=== PATIENT | female | born 1935 | race Caucasian/White ===

== ENCOUNTER 2019-07-09 07:24 | Emergency (ER) | payer MEDICARE, OTHER ==
[2019-07-09] MEDS ORDERED: ONDANSETRON HCL INJ/PF 4 MG/2 ML SDV IV ONE (07:50)
[2019-07-09] MEDS ORDERED: MORPHINE SULFATE 10 MG/ML INJ IV ONE (07:50)
--- NOTE | 2019-07-09 08:20 | ER Document Report ---
ED Hip Pain/Injury - General Chief Complaint: Hip Pain Stated Complaint: LEFT HIP PAIN Time Seen by Provider: 07/09/19 07:48 Primary Care Provider: HAILEE FREEMAN MD [Primary Care Provider] - Follow up as needed Mode of Arrival: Stretcher Information source: Patient TRAVEL OUTSIDE OF THE [place] IN LAST 30 DAYS: No - HPI Patient complains to provider of: Hip, Other - r frontal scalp. No: Injury, Pain, Flank, Pelvis, Thigh Occurred: Yesterday Where: Home. No: Indoors, Neighbor's, Halfway, Outdoors, Public place, School, Sports, Work, Other Onset/Duration: Sudden. denies: Gradual, Constant, Intermittent, Persistent, Waxing and waning, Better, Worse, Gone Quality of pain: Achy. denies: No pain, Burning, Cramping, Dull, Fullness, Pressure, Sharp, Stabbing, Throbbing, Other Severity: Mild Context: Fell/lost balance Symptoms prior to fall: denies: None, Chest pain, Cough, Dizzy/light-headed, Fever/chills/sweats, GI bleed, Headache, Rapid heart rate, Seizure, Vomiting/diarrhea, Other Symptoms since fall: denies: None, Chest pain, Cough, Dizzy/light-headed, Fever/chills/sweats, GI bleed, Headache, Rapid heart rate, Seizure, Vomiting/diarrhea, Other Other injuries: LUE. denies: Abdomen, Back, Chest, Face, Head, Neck, LLE, RUE, RLE - Related Data Allergies/Adverse Reactions: No Known Allergies Allergy (Verified 07/09/19 07:38) Past Medical History - Social History Smoking Status: Never Smoker Family History: None - Past Medical History Cardiac Medical History: Denies: Hx Heart Attack, Hx Hypertension Pulmonary Medical History: Denies: Hx Asthma Neurological Medical History: Denies: Hx Cerebrovascular Accident, Hx Seizures GI Medical History: Reports: Hx Hiatal Hernia - no sx at this time. Denies: Hx Hepatitis, Hx Ulcer Infectious Medical History: Denies: Hx Hepatitis Past Surgical History: Reports: Hx Hysterectomy. Denies: Hx Mastectomy, Hx Open Heart Surgery, Hx Pacemaker Review of Systems - Review of Systems Constitutional: denies: No symptoms reported, See HPI, Chills, Diaphoresis, Fever, Malaise, Weakness, Other, Weight gain, Weight loss, Recent illness EENT: denies: No symptoms reported, See HPI, Eye pain, Eye discharge, Blurred vision, Tearing, Double vision, Ear pain, Ear discharge, Nose pain, Nose congestion, Nose discharge, Sinus pressure, Sinus discharge, Throat pain, Difficulty swallowing, Throat swelling, Mouth pain, Mouth swelling, Dental problem, Vertigo, Other Cardiovascular: denies: No symptoms reported, See HPI, Chest pain, Palpitations, Heart racing, Orthopnea, Dyspnea, Syncope, Dizziness, Lightheaded, Edema, Other, Paroxysmal Nocturnal Dysp Respiratory: denies: No symptoms reported, See HPI, Cough, Hurts to breathe, Hemoptysis, Short of breath, Sputum, Stridor, Wheezing, Other Gastrointestinal: denies: No symptoms reported, See HPI, Abdomen distended, Abdominal pain, Diarrhea, Nausea, Vomiting, Constipation, Blood streaked bowels, Poor appetite, Poor fluid intake, Blood in vomit, Black stools, Rectal bleeding, Last bowel movement, Fecal incontinence, Other Musculoskeletal: Joint pain. denies: No symptoms reported, See HPI, Back pain, Gout, Joint swelling, Muscle pain, Muscle stiffness, Neck pain, Deformity, Leg swelling, Ankle swelling, Other Neurological/Psychological: Other - headache. denies: No symptoms reported, See HPI, Confusion, Dementia, Depression, Anxiety, Hallucinations, Sensory change, Homicidal ideation, Weakness, Gait changes, Loss of power, Paralysis, Seizure, Lost consciousness, Headaches, Speech impairment, Numbness, Suicidal ideation, Tingling, Tremor -: Yes All other systems reviewed and negative Physical Exam - Vital signs Vitals: Temp Pulse Resp BP Pulse Ox 98.6 F 81 16 155/72 H 98 07/09/19 07:25 07/09/19 07:25 07/09/19 07:25 07/09/19 07:25 07/09/19 07:25 Notes: PHYSICAL EXAMINATION: GENERAL: Well-appearing, well-nourished and in no acute distress. HEAD: Left forehead to the temporal area small ecchymosis and swelling., normocephalic. EYES: Pupils equal round and reactive to light, extraocular movements intact, sclera anicteric, conjunctiva are normal. ENT: nares patent, oropharynx clear without exudates. Moist mucous membranes. NECK: Normal range of motion, supple without lymphadenopathy cervical thoracic lumbar sacral spinous tenderness LUNGS: Breath sounds clear to auscultation bilaterally and equal. No wheezes rales or rhonchi. HEART: Regular rate and rhythm without murmurs ABDOMEN: Soft, nontender, normoactive bowel sounds. No guarding, no rebound. No masses appreciated. EXTREMITIES: Left hip pain to palpation over the greater trochanter does appear somewhat shortened. Rest extremities with full range of motion., no pitting or edema. No cyanosis. NEUROLOGICAL: No focal neurological deficits. Moves all extremities spontaneously and on command. PSYCH: Normal mood, normal affect. SKIN: Warm, Dry, normal turgor, no rashes or lesions noted. Course - Vital Signs Vital signs: Temp Pulse Resp BP Pulse Ox 98.6 F 81 16 155/72 H 98 07/09/19 07:25 07/09/19 07:25 07/09/19 07:25 07/09/19 07:25 07/09/19 07:25 - Laboratory Result Diagrams: 07/09/19 08:25 07/09/19 08:25 Laboratory results interpreted by me: 07/09/19 07/09/19 08:25 08:25 RDW 17.5 H Lymph % (Auto) 11.2 L Seg Neutrophils % 79.3 H Glucose 126 H - Diagnostic Test Radiology reviewed: Image reviewed, Reports reviewed Radiology results interpreted by me: 07/09/19 please note patient hip x-ray was read by the radiologist Dr. Rubi over the phone give me consultation claimed there is no acute fracture dislocation had trouble walking he suggested CT. - Transfer of Care Notes: 07/09/19 11:03 Patient was able to ambulate after Tylenol did have some pain will give her some [place] to go home but she feels like it very similar to the past and that she can stand without any pain in her hip just when she gets going to walk that when the pain comes on. Discharge - Discharge Clinical Impression: Contusion, hip Qualifiers: Encounter type: initial encounter Laterality: left Qualified Code(s): S70.02XA - Contusion of left hip, initial encounter Hand contusion Qualifiers: Encounter type: initial encounter Laterality: left Qualified Code(s): S60.222A - Contusion of left hand, initial encounter Concussion Qualifiers: Encounter type: initial encounter Loss of consciousness presence/duration: with LOC of unspecified duration Qualified Code(s): S06.0X9A - Concussion with loss of consciousness of unspecified duration, initial encounter Condition: Stable Disposition: HOME, SELF-CARE Instructions: Contusion ([facility]), Concussion ([facility]) Additional Instructions: Ice and a towel for 20 minutes 3 times a day return if worse take pain medicine as discussed Prescriptions: Hydrocodone/Acetaminophen [[place] 5-325 mg Tablet] 1 tab PO Q6 PRN #10 tablet PRN Reason: For Pain Scale 2-3 Referrals: HAILEE FREEMAN MD [Primary Care Provider] - Follow up as needed
--- NOTE | 2019-07-09 08:35 | RADIOLOGY REPORT (SQ) ---
EXAM DESCRIPTION: CT HEAD WITHOUT COMPLETED DATE/TIME: 07/09/2019 8:21 am REASON FOR STUDY: head injury COMPARISON: None. TECHNIQUE: Axial images acquired through the brain without intravenous contrast. Images reviewed wi th bone, brain and subdural windows. Additional sagittal and coronal reconstructions were generated. Images stored on PACS. All CT scanners at this facility use dose modulation, iterative reconstruction, and/or weight based d osing when appropriate to reduce radiation dose to as low as reasonably achievable (ALARA). [facility]: Dose Right [facility]: CareDose [facility]: Dose Right [facility]: Teradose 4D [facility]: [employer] RADIATION DOSE: CT Rad equipment meets quality standard of care and radiation dose reduction techniq ues were employed. CTDIvol: 53.2 mGy. DLP: 1017 mGy-cm. mGy. LIMITATIONS: None. FINDINGS: There is diffuse, age-appropriate cerebral and cerebellar volume loss. The confluent area s of hypoattenuation within the supratentorial periventricular and subcortical white matter are nonsp ecific but are favored to represent the sequela of chronic microvascular ischemia. There is a calcified extra-axial mass along the right frontal convexity ; the lesion exerts no consid erable mass effect on the adjacent parenchyma and there is no associated vasogenic edema. There is n o acute intracranial hemorrhage, extra-axial fluid collection or midline shift. There is no effaceme nt of the cerebral sulci or basal subarachnoid cisterns. The goldman-white matter differentiation is pr eserved. There is focal subcutaneous soft tissue swelling over the left frontal bone (image 22 of series 2) ; there is no associated calvarial fracture. The globes are aphakic. The orbits are intact. The para nasal sinuses and mastoid air cells are clear. IMPRESSION: Focal subcutaneous soft tissue swelling over the left frontal bone without an associated calvarial fracture or acute intracranial abnormality. EVIDENCE OF ACUTE STROKE: NO. COMMENT: Quality ID # 436: Final reports with documentation of one or more dose reduction techniques (e.g., Automated exposure control, adjustment of the mA and/or kV according to patient size, use of iterative reconstruction technique) TECHNICAL DOCUMENTATION: JOB ID: [id number] [employer]- All Rights Reserved Reading location - IP/workstation name: [email or web address]
[2019-07-09 08:55] LABS: ABSOLUTE BASOPHILS # (AUTO) 0.1 10^3/uL (0.0-0.2); ABSOLUTE EOSINOPHILS # (AUTO) 0.1 10^3/uL (0.0-0.6); ABSOLUTE LYMPHOCYTES (AUTO) 1.1 10^3/uL (0.5-4.7); ABSOLUTE MONOCYTES (AUTO) 0.8 10^3/uL (0.1-1.4); ABSOLUTE NEUT (AUTO) 7.5 10^3/uL (1.7-8.2); BASOPHILS % (AUTO) 0.6 % (0-2); EOSINOPHILS % (AUTO) 0.7 % (0-6); HEMOGLOBIN 13.9 g/dL (12.0-15.5); LYMPHOCYTES % (AUTO) 11.2 % (13-45); MEAN CORPUSCULAR HEMOGLOBIN 28.4 pg (27.0-33.4); MEAN CORPUSCULAR VOLUME 86 fl (80-97); MONOCYTES % (AUTO) 8.2 % (3-13); PLATELET COUNT 265 10^3/uL (150-450); RED BLOOD COUNT 4.88 10^6/uL (3.72-5.28); RED CELL DISTRIBUTION WIDTH 17.5 % (11.5-14.0); SEGMENTED NEUTROPHILS % (AUTO) 79.3 % (42-78); TOTAL CELLS COUNTED % (AUTO) 100 %; WHITE BLOOD COUNT 9.4 10^3/uL (4.0-10.5)
--- NOTE | 2019-07-09 08:58 | RADIOLOGY REPORT (SQ) ---
EXAM DESCRIPTION: HAND LEFT 3 VIEWS COMPLETED DATE/TIME: 07/09/2019 8:24 am REASON FOR STUDY: fracture COMPARISON: None. EXAM PARAMETERS: NUMBER OF VIEWS: Three views. TECHNIQUE: AP, lateral and oblique radiographic images acquired of the left hand. LIMITATIONS: None. FINDINGS: MINERALIZATION: Osteopenia. BONES: Chronic fracture deformity of the distal radius. 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 SOFT TISSUES: No soft tissue swelling or radiopaque foreign body. OTHER: No other finding. IMPRESSION: 1. No acute osseous abnormality of the left hand. 2. Chronic fracture deformity of the distal radius. 3. 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 TECHNICAL DOCUMENTATION: JOB ID: [id number] [employer]- All Rights Reserved Reading location - IP/workstation name: [email or web address]
[2019-07-09 09:15] LABS: ANION GAP 10 (5-19); BLOOD UREA NITROGEN 19 mg/dL (7-20); CALCIUM 9.3 mg/dL (8.4-10.2); CARBON DIOXIDE 29 mmol/L (22-30); CHLORIDE 100 mmol/L (98-107); GLUCOSE 126 mg/dL (75-110); POTASSIUM 4.7 mmol/L (3.6-5.0)
[2019-07-09] MEDS ORDERED: ACETAMINOPHEN 325 MG TABLET PO ONE (09:34)
--- NOTE | 2019-07-09 10:35 | RADIOLOGY REPORT (SQ) ---
EXAM DESCRIPTION: HIP LEFT AP/LATERAL COMPLETED DATE/TIME: 07/09/2019 7:57 am REASON FOR STUDY: bed 14 s/p fall with tenderness COMPARISON: None. NUMBER OF VIEWS: Two views. TECHNIQUE: AP pelvis and additional frog-leg view of the left hip. LIMITATIONS: None. FINDINGS: MINERALIZATION: Osteopenia. LEFT HIP: There is a revised left hip prosthesis with cerclage wires around the proximal femoral comp onent. The there is no dislocation of the arthroplasty, however the periprosthetic lucencies around the acetabular and proximal femoral components are concerning for aseptic loosening - if available co rrelation with prior radiographs is recommended. There is no acute displaced fracture. RIGHT HIP: No fracture or dislocation. PUBIS AND ISCHIUM: The ilioischial lines are intact. There is no diastasis of the pubic symphysis. PELVIS: No fracture. SACRUM: The sacrum is obscured by overlying bowel gas. LOWER LUMBAR SPINE: The lumbar spine is obscured by overlying bowel gas. SOFT TISSUES: No findings. OTHER: No other finding. IMPRESSION: Revised left hip prosthesis with periprosthetic lucencies around the acetabular and prox imal femoral components that are concerning for aseptic loosening - if available correlation with kassy or radiographs is recommend. Given the degree of osteopenia if the patient is unable to bear weight then correlation with CT is recommended to exclude an occult fracture. TECHNICAL DOCUMENTATION: JOB ID: [id number] [employer]- All Rights Reserved Reading location - IP/workstation name: [email or web address]
[2019-07-09] MEDS ORDERED: HYDROCODONE/ACETAMINOPHEN 5-325 MG TABLET PO ONE (11:03)
[2019-07-09 11:26] VITALS: BP 139/78
== END 2019-07-09 11:26 | disposition home or self-care (01) ==
LOC: ER 07:24
DX: S70.02XA Contusion of left hip, initial encounter (principal); S60.222A Contusion of left hand, initial encounter; S06.0X9A Concussion with loss of consciousness of unspecified duration, initial encounter; S00.83XA Contusion of other part of head, initial encounter; W19.XXXA Unspecified fall, initial encounter; Y93.89 Activity, other specified; Y92.000 Kitchen of unspecified non-institutional (private) residence as the place of occurrence of the external cause; R51 Headache
CPT/HCPCS: 36415; 85025; 80048; 73130; 73502; 70450; A9270 ×2; 99284

== ENCOUNTER 2019-07-19 11:14 | Inpatient (IN) | payer MEDICARE, OTHER ==
--- NOTE | 2019-07-19 13:09 | RADIOLOGY REPORT (SQ) ---
EXAM DESCRIPTION: HUMERUS RIGHT COMPLETED DATE/TIME: 07/19/2019 1:00 pm REASON FOR STUDY: bone tenderness COMPARISON: None. NUMBER OF VIEWS: Two views. TECHNIQUE: Two radiographic images were acquired of the right humerus to include elbow and shoulder in at least one projection. LIMITATIONS: None. FINDINGS: MINERALIZATION: Normal. BONES: No acute fracture or dislocation. No worrisome bone lesions. SOFT TISSUES: Radiopaque density in the proximal soft tissues. OTHER: No other significant finding. IMPRESSION: RADIOPAQUE DENSITY IN THE PROXIMAL SOFT TISSUES, PROBABLY FOCAL CALCIFICATION. CANNOT E XCLUDE RADIOPAQUE FOREIGN BODY. NO OTHER SIGNIFICANT FINDINGS. TECHNICAL DOCUMENTATION: JOB ID: [id number] [employer]- All Rights Reserved Reading location - IP/workstation name: [email or web address]
--- NOTE | 2019-07-19 13:15 | RADIOLOGY REPORT (SQ) ---
EXAM DESCRIPTION: CT PELVIS WITHOUT COMPLETED DATE/TIME: 07/19/2019 12:59 pm REASON FOR STUDY: b/l hip pain, correlate w. imaging 10d ago COMPARISON: X-ray dated 07/09/2019. TECHNIQUE: CT scan of the pelvis performed without intravenous or oral contrast. Images reviewed wi th soft tissue and bone windows. Reconstructed coronal and sagittal MPR images reviewed. All images stored on PACS. All CT scanners at this facility use dose modulation, iterative reconstruction, and/or weight based d osing when appropriate to reduce radiation dose to as low as reasonably achievable (ALARA). [facility]: Dose Right [facility]: CareDose [facility]: Dose Right [facility]: Teradose 4D [facility]: [employer] RADIATION DOSE: CT Rad equipment meets quality standard of care and radiation dose reduction techniq ues were employed. CTDIvol: 14.7 mGy. DLP: 431 mGy-cm. mGy. LIMITATIONS: Metallic artifact from left hip hardware. FINDINGS: PELVIC BONES: Minimally displaced fractures of the left superior and inferior pubic ramus (axial series 2, images 76 and 86. Coronal series 301, images 37 and 45). VISUALIZED SPINE: No acute findings. HIP(S): No acute fracture or dislocation. Left hip prosthesis and hardware in the proximal femur. C hronic appearing deformity of the proximal femur. No worrisome bone lesions. PELVIC SOFT TISSUES: No significant findings. EXTRAPELVIC SOFT TISSUES: No significant findings. OTHER: No other significant finding. IMPRESSION: MINIMALLY DISPLACED FRACTURES OF THE LEFT SUPERIOR AND INFERIOR PUBIC RAMUS. TECHNICAL DOCUMENTATION: JOB ID: [id number] Quality ID # [id number]: Final reports with documentation of one or more dose reduction techniques (e.g., Au tomated exposure control, adjustment of the mA and/or kV according to patient size, use of iterative reconstruction technique) 2010 [employer]- All Rights Reserved Reading location - IP/workstation name: [email or web address]
--- NOTE | 2019-07-19 13:28 | ER Document Report ---
ED General - General Chief Complaint: Hip Pain Stated Complaint: RIGHT THIGH PAIN Time Seen by Provider: 07/19/19 12:36 Primary Care Provider: HAILEE FREEMAN MD [Primary Care Provider] - Follow up as needed TRAVEL OUTSIDE OF THE [place] IN LAST 30 DAYS: No - HPI Notes: Patient is an 83-year-old female with history of peripheral edema who presents complaining of continued bilateral pelvis pain status post fall 10 days ago. She was evaluated had an x-ray that was inconclusive, but patient was able to ambulate and weight-bear so they sent her home at that time. Patient states that the pain has gotten worse and she is now unable to get up on her own or ambulate without pain. Patient states that she is unable to go to the bathroom as well on her own because of the pain. She did not have any other new falls. Denies drug allergies. She is not on any blood thinning medications. No other concerns or complaints. Patient does live alone otherwise. She has no family locally just friends who are also in their 80s. Denies any headache, fever, new head injury, neck pain, changes in vision/speech/mentation/hearing, URI, sore throat, chest pain, palpitations, syncope, cough, shortness of breath, wheeze, dyspnea, abdominal pain, nausea/vomiting/diarrhea, urinary retention, dysuria, hematuria, loss of control of bowel or bladder, numbness/tingling, saddle anesthesia, muscle paralysis, or rash. - Related Data Allergies/Adverse Reactions: No Known Allergies Allergy (Verified 07/09/19 07:38) Past Medical History - Social History Smoking Status: Former Smoker Family History: None Patient has suicidal ideation: No Patient has homicidal ideation: No - Past Medical History Cardiac Medical History: Denies: Hx Heart Attack, Hx Hypertension Pulmonary Medical History: Denies: Hx Asthma Neurological Medical History: Denies: Hx Cerebrovascular Accident, Hx Seizures GI Medical History: Reports: Hx Hiatal Hernia - no sx at this time. Denies: Hx Hepatitis, Hx Ulcer Infectious Medical History: Denies: Hx Hepatitis Past Surgical History: Reports: Hx Hysterectomy. Denies: Hx Mastectomy, Hx Open Heart Surgery, Hx Pacemaker Review of Systems - Review of Systems -: Yes All other systems reviewed and negative Physical Exam - Vital signs Vitals: Temp Pulse Resp BP Pulse Ox 97.9 F 73 18 142/61 H 96 07/19/19 11:21 07/19/19 11:21 07/19/19 11:21 07/19/19 11:21 07/19/19 11:21 - Notes Notes: PHYSICAL EXAMINATION: GENERAL: Well-appearing, well-nourished and in no acute distress. LUNGS: Breath sounds clear to auscultation bilaterally and equal. No wheezes rales or rhonchi. HEART: Regular rate and rhythm without murmurs, rubs, gallops. ABDOMEN: Soft, nontender, nondistended abdomen. No guarding, no rebound. No masses appreciated. Normal bowel sounds present. No CVA tenderness bilaterally. No pulsatile mass Musculoskeletal: LE's b/l: FROM to passive/active at the hips/knees. Strength 5+/5. No deficits noted. see below. Back: LROM to passive/active. Strength 5+/5. No vertebral point tenderness, stepoffs, or deformities. No other erythema, swelling, or ecchymosis. + tenderness lower pelvic area b/l. N/V intact distal. Extremities: No cyanosis, clubbing, or edema b/l. Peripheral pulses 2+. Capillary refill less than 2 seconds. NEUROLOGICAL: Normal speech. Normal sensory, motor exams. Reflexes 2+ b/l. PSYCH: Normal mood, normal affect. SKIN: Warm, Dry, normal turgor, no rashes or lesions noted. Course - Re-evaluation Re-evalutation: 07/19/19 13:30 Patient is an afebrile, well-hydrated, 83-year-old female who presents with minimally displaced fractures of the superior and inferior left pubic ramus. Vitals are currently acceptable. PE is otherwise unremarkable. Patient is nontoxic-appearing. She is unable to sit upright or weight-bear. She is 83 years old and does live alone. We will call for admission to the hospital. Pt in agreement with plan. 07/19/19 13:35 Kay Babin NP accepted pt for admit. - Vital Signs Vital signs: Temp Pulse Resp BP Pulse Ox 97.9 F 73 18 142/61 H 96 07/19/19 11:21 07/19/19 11:21 07/19/19 11:21 07/19/19 11:21 07/19/19 11:21 Discharge - Discharge Clinical Impression: Pubic ramus fracture Qualifiers: Encounter type: initial encounter Fracture type: closed Laterality: left Qualified Code(s): S32.592A - Other specified fracture of left pubis, initial encounter for closed fracture Condition: Stable Disposition: ADMITTED INPATIENT Admitting Provider: Kathrine (Hospitalist) - for Joey Babin [employer] Unit Admitted: Medical Floor Referrals: HAILEE FREEMAN MD [Primary Care Provider] - Follow up as needed
[2019-07-19] MEDS ORDERED: TEMAZEPAM 15 MG CAPSULE PO PRN (14:00)
[2019-07-19] MEDS ORDERED: ONDANSETRON HCL INJ/PF 4 MG/2 ML SDV IV PRN (14:00)
[2019-07-19] MEDS ORDERED: MAG HYDROX/AL HYDROX/SIMETH SUSP 30 ML UDCUP PO PRN (14:00)
--- NOTE | 2019-07-19 14:10 | PDOC H&P ---
History of Present Illness Admission Date/PCP: 07/19/19 13:56 HAILEE FREEMAN MD Patient complains of: Pelvic pain History of Present Illness: RASTA CONTRERAS is a 83 year old female is a very pleasant 83-year-old female with history of peripheral edema who presented to ER complaining of continued bilateral pelvis pain status post a fall 10 days ago. Patient was evaluated in the ER at that time was found to be inconclusive for fractures at the time but was able to ambulate and weight-bear so she was sent home. Patient states she been able to go to restroom as well as other daily activities because of pain. She denies any further falls no other concerns or complaints at this time. Patient does live alone but does have friends who check on her periodically. She had no treatment prior to arrival all activities aggravating factor Past Medical History Cardiac Medical History: Denies: Myocardial Infarction, Hypertension Pulmonary Medical History: Denies: Asthma Neurological Medical History: Denies: Seizures GI Medical History: Reports: Hiatal Hernia - no sx at this time Denies: Hepatitis Hematology: Denies: Anemia, Sickle Cell Disease Past Surgical History Past Surgical History: Reports: Hysterectomy Denies: Amputation, Mastectomy, Pacemaker Social History Information Source: Patient Smoking Status: Former Smoker Electronic Cigarette use?: No Frequency of Alcohol Use: None Hx Recreational Drug Use: No Drugs: None Hx Prescription Drug Abuse: No - Advance Directive Resuscitation Status: Full Code Family History Family History: None, Hypertension Parental Family History Reviewed: Yes Children Family History Reviewed: Yes Sibling(s) Family History Reviewed.: Yes Medication/Allergy Home Medications: Acetaminophen [Tylenol 325 mg Tablet] 650 mg PO Q4HP PRN 07/30/12 Ca Cmb No.1/Vit D3/B-6/FA/B12 [Vitamin D3 1,000 Unit Tablet] 2 each PO DAILY 07/30/12 Calcium/Magnesium/Vit D3 [Calcium 500 Mg Tablet] 2 each PO DAILY 07/30/12 Cyclosporine [Restasis Droperette] 1 each OP BID 07/30/12 Estrogens,Conjugated [Premarin 0.3 Mg Tablet] 0.3 mg PO DAILY 07/30/12 Ezetimibe/Simvastatin [Vytorin 10-40 Mg Tablet] 1 each PO DAILY 07/30/12 Furosemide [Lasix 40 mg Tablet] 40 mg PO QAM 07/30/12 Loratadine [Claritin 10 Mg Tablet] 10 mg PO DAILY PRN 07/30/12 Lorazepam [Ativan 1 mg Tablet] 2 mg PO PRN PRN 07/30/12 Metoprolol Succinate [Toprol Xl 50 mg Tab.sr] 50 mg PO DAILY 07/30/12 Multivitamin [Tab-A-[place]ving (Multiple Vitamin) Tablet] 1 tab PO DAILY 07/30/12 Propylene Glycol/Peg 400/Pf [Systane 0.3-0.4% Eye Drops] 1 each OP PRN PRN 07/30/12 [place] Oil/[place]-3 Fatty Acids [[place] Oil 1,000 Mg Softgel] 1 each PO DAILY 07/30/12 Hydrocodone/Acetaminophen [[place] 5-325 mg Tablet] 1 tab PO Q6 PRN #10 tablet 07/09/19 Ondansetron [Zofran Odt 4 mg Tablet] 1 - 2 tab PO Q4H PRN #15 tab.rapdis 07/09/19 Allergies/Adverse Reactions: No Known Allergies Allergy (Verified 07/09/19 07:38) Review of Systems Constitutional: ABSENT: chills, fever(s), headache(s), weight gain, weight loss Eyes: ABSENT: visual disturbances Ears: ABSENT: hearing changes Cardiovascular: ABSENT: chest pain, dyspnea on exertion, edema, orthropnea, palpitations Respiratory: ABSENT: cough, hemoptysis Gastrointestinal: ABSENT: abdominal pain, constipation, diarrhea, hematemesis, hematochezia, nausea, vomiting Genitourinary: ABSENT: dysuria, hematuria Musculoskeletal: PRESENT: other - Pelvic pain. ABSENT: joint swelling Integumentary: ABSENT: rash, wounds Neurological: ABSENT: abnormal gait, abnormal speech, confusion, dizziness, focal weakness, syncope Psychiatric: ABSENT: anxiety, depression, homidical ideation, suicidal ideation Endocrine: ABSENT: cold intolerance, heat intolerance, polydipsia, polyuria Hematologic/Lymphatic: ABSENT: easy bleeding, easy bruising Physical Exam Vital Signs: Temp Pulse Resp BP Pulse Ox 97.9 F 73 18 142/61 H 96 07/19/19 11:21 07/19/19 11:21 07/19/19 11:21 07/19/19 11:21 07/19/19 11:21 Intake & Output 07/18/19 07/19/19 07/20/19 06:59 06:59 06:59 Weight 68.5 kg General appearance: PRESENT: no acute distress, well-developed, well-nourished Head exam: PRESENT: atraumatic, normocephalic Eye exam: PRESENT: conjunctiva pink, EOMI, PERRLA. ABSENT: scleral icterus Ear exam: PRESENT: normal external ear exam Mouth exam: PRESENT: moist, tongue midline Neck exam: ABSENT: carotid bruit, JVD, lymphadenopathy, thyromegaly Respiratory exam: PRESENT: clear to auscultation drea. ABSENT: rales, rhonchi, wheezes Cardiovascular exam: PRESENT: RRR. ABSENT: diastolic murmur, rubs, systolic murmur Pulses: PRESENT: normal dorsalis pedis pul Vascular exam: PRESENT: normal capillary refill GI/Abdominal exam: PRESENT: normal bowel sounds, soft. ABSENT: distended, guarding, mass, organolmegaly, rebound, tenderness Rectal exam: PRESENT: deferred Extremities exam: PRESENT: full ROM. ABSENT: calf tenderness, clubbing, pedal edema Neurological exam: PRESENT: alert, awake, oriented to person, oriented to place, oriented to time, oriented to situation, CN II-XII grossly intact. ABSENT: motor sensory deficit Psychiatric exam: PRESENT: appropriate affect, normal mood. ABSENT: homicidal ideation, suicidal ideation Skin exam: PRESENT: dry, intact, warm, other - Large bruise over her left eye. ABSENT: cyanosis, rash Results Impressions: Humerus X-Ray 07/19/19 11:56 IMPRESSION: RADIOPAQUE DENSITY IN THE PROXIMAL SOFT TISSUES, PROBABLY FOCAL CALCIFICATION. CANNOT EXCLUDE RADIOPAQUE FOREIGN BODY. NO OTHER SIGNIFICANT FINDINGS. Pelvis CT 07/19/19 12:36 IMPRESSION: MINIMALLY DISPLACED FRACTURES OF THE LEFT SUPERIOR AND INFERIOR PUBIC RAMUS. Assessment and Plan - Diagnosis (1) Intractable pain Is this a current diagnosis for this admission?: Yes Plan: 07/19/2019-intractable pain secondary to a fall 10 days ago. Bilateral ribs fractures at this time. Physical and occupational therapy Dilaudid 1 mg IV every 3 hours as needed pain continue to supply all needs and concerns. (2) Pubic ramus fracture Qualifiers: Encounter type: initial encounter Fracture type: closed Laterality: left Qualified Code(s): S32.592A - Other specified fracture of left pubis, initial encounter for closed fracture Is this a current diagnosis for this admission?: Yes Plan: 07/19/2019-physical outpatient therapy. Possible short-term rehab (3) Hypertension Is this a current diagnosis for this admission?: Yes Plan: 07/19/2019-most likely pain related. Continue IV Dilaudid. Continue all home medications once reconciliation is complete (4) Nausea & vomiting Is this a current diagnosis for this admission?: Yes Plan: 07/19/2019 as needed Zofran - Time Time Spent with patient: 35 or more minutes - Inpatient Certification Based on my medical assessment, after consideration of the patient's comorbidities, presenting symptoms, or acuity I expect that the services needed warrant INPATIENT care.: Yes I certify that my determination is in accordance with my understanding of Medicare's requirements for reasonable and necessary INPATIENT services [42 CFR 412.3e].: Yes Medical Necessity: Significant Comorbidiites Make Outpatient Treatment Too Risky, Need Close Monitoring Due to Risk of Patient Decompensation, Need for Gary n Control
[2019-07-19 14:41] LABS: APPEARANCE,URINE CLEAR; BILIRUBIN,URINE NEGATIVE (NEGATIVE); COLOR,URINE YELLOW; GLUCOSE, URINE NEGATIVE (NEGATIVE); KETONES,URINE NEGATIVE (NEGATIVE); PROTEIN,URINE NEGATIVE (NEGATIVE); URINE SPECIFIC GRAVITY 1.012; UROBILINOGEN,URINE NEGATIVE mg/dL (<2.0)
[2019-07-19 15:05] LABS: ABSOLUTE BASOPHILS # (AUTO) 0.1 10^3/uL (0.0-0.2); ABSOLUTE EOSINOPHILS # (AUTO) 0.1 10^3/uL (0.0-0.6); ABSOLUTE LYMPHOCYTES (AUTO) 1.1 10^3/uL (0.5-4.7); ABSOLUTE MONOCYTES (AUTO) 1.2 10^3/uL (0.1-1.4); ABSOLUTE NEUT (AUTO) 7.5 10^3/uL (1.7-8.2); BASOPHILS % (AUTO) 0.6 % (0-2); EOSINOPHILS % (AUTO) 0.9 % (0-6); HEMATOCRIT 35.7 % (36.0-47.0); HEMOGLOBIN 11.9 g/dL (12.0-15.5); LYMPHOCYTES % (AUTO) 11.1 % (13-45); MEAN CORPUSCULAR HEMOGLOBIN 28.3 pg (27.0-33.4); MEAN CORPUSCULAR HGB CONC 33.3 g/dL (32.0-36.0); MEAN CORPUSCULAR VOLUME 85 fl (80-97); MONOCYTES % (AUTO) 11.6 % (3-13); PLATELET COUNT 323 10^3/uL (150-450); RED BLOOD COUNT 4.19 10^6/uL (3.72-5.28); RED CELL DISTRIBUTION WIDTH 17.3 % (11.5-14.0); SEGMENTED NEUTROPHILS % (AUTO) 75.8 % (42-78); TOTAL CELLS COUNTED % (AUTO) 100 %
[2019-07-19 15:29] LABS: ALBUMIN 3.4 g/dL (3.5-5.0); ALKALINE PHOSPHATASE 121 U/L (38-126); ANION GAP 8 (5-19); ASPARTATE AMINO TRANSFERASE 24 U/L (14-36); BILIRUBIN,DIRECT 0.2 mg/dL (0.0-0.4); BILIRUBIN,TOTAL 0.5 mg/dL (0.2-1.3); BLOOD UREA NITROGEN 18 mg/dL (7-20); CALCIUM 8.4 mg/dL (8.4-10.2); CARBON DIOXIDE 28 mmol/L (22-30); CHLORIDE 102 mmol/L (98-107); GLUCOSE 116 mg/dL (75-110); POTASSIUM 3.8 mmol/L (3.6-5.0); TOTAL PROTEIN 6.6 g/dL (6.3-8.2)
[2019-07-19] MEDS: NORMAL SALINE 1000 ML 1,000 ML IV PRN (15:53)
[2019-07-19] MEDS: HEPARIN SOD (PORCINE) 5,000 UNIT/ML 1 ML VIAL SUBCUT SCH ×2 (15:53→21:42)
[2019-07-19] MEDS: ACETAMINOPHEN 325 MG TABLET PO PRN (15:56)
[2019-07-19] MEDS: HYDROMORPHONE HCL INJ/PF 2 MG/ML AMPULE IV PRN ×2 (18:14→21:39)
[2019-07-20] MEDS: HYDROMORPHONE HCL INJ/PF 2 MG/ML AMPULE IV PRN ×3 (03:32→20:17)
[2019-07-20] MEDS: NORMAL SALINE 1000 ML 1,000 ML IV PRN (03:32)
[2019-07-20] MEDS: HEPARIN SOD (PORCINE) 5,000 UNIT/ML 1 ML VIAL SUBCUT SCH ×3 (05:11→22:01)
[2019-07-20 05:35] LABS: HEMATOCRIT 33.3 % (36.0-47.0); HEMOGLOBIN 11.1 g/dL (12.0-15.5); MEAN CORPUSCULAR HEMOGLOBIN 28.1 pg (27.0-33.4); MEAN CORPUSCULAR HGB CONC 33.3 g/dL (32.0-36.0); MEAN CORPUSCULAR VOLUME 85 fl (80-97); PLATELET COUNT 267 10^3/uL (150-450); RED BLOOD COUNT 3.94 10^6/uL (3.72-5.28); RED CELL DISTRIBUTION WIDTH 17.5 % (11.5-14.0); WHITE BLOOD COUNT 8.3 10^3/uL (4.0-10.5)
[2019-07-20 05:55] LABS: ANION GAP 5 (5-19); BLOOD UREA NITROGEN 15 mg/dL (7-20); CALCIUM 8.1 mg/dL (8.4-10.2); CARBON DIOXIDE 29 mmol/L (22-30); CHLORIDE 104 mmol/L (98-107); GLUCOSE 100 mg/dL (75-110); PHOSPHORUS 3.9 mg/dL (2.5-4.5); POTASSIUM 4.1 mmol/L (3.6-5.0)
[2019-07-20] MEDS ORDERED: LORAZEPAM 1 MG TABLET PO PRN (09:07)
--- NOTE | 2019-07-20 09:15 | PDOC PROGRESS REPORT ---
Subjective Progress Note for:: 07/20/19 Subjective:: 07/20/2019-continue pain pelvis area Reason For Visit: INTRACTABLE PAIN Physical Exam Vital Signs: Temp Pulse Resp BP Pulse Ox 99.0 F 80 18 136/53 H 93 07/20/19 03:38 07/20/19 03:38 07/19/19 20:37 07/20/19 03:38 07/20/19 03:38 Intake & Output 07/19/19 07/20/19 07/21/19 06:59 06:59 06:59 Intake Total 999 Output Total 300 Balance 699 Weight 68.2 kg General appearance: PRESENT: no acute distress, well-developed, well-nourished Neck exam: ABSENT: carotid bruit, JVD, lymphadenopathy, thyromegaly Respiratory exam: PRESENT: clear to auscultation drea. ABSENT: rales, rhonchi, wheezes Cardiovascular exam: PRESENT: RRR. ABSENT: diastolic murmur, rubs, systolic murmur Pulses: PRESENT: normal dorsalis pedis pul Vascular exam: PRESENT: normal capillary refill GI/Abdominal exam: PRESENT: normal bowel sounds, soft. ABSENT: distended, guarding, mass, organolmegaly, rebound, tenderness Extremities exam: PRESENT: full ROM. ABSENT: calf tenderness, clubbing, pedal edema Neurological exam: PRESENT: alert, awake, oriented to person, oriented to place, oriented to time, oriented to situation, CN II-XII grossly intact. ABSENT: motor sensory deficit Psychiatric exam: PRESENT: appropriate affect, normal mood. ABSENT: homicidal ideation, suicidal ideation Skin exam: PRESENT: other - Black eye on the left Results Laboratory Results: 07/20/19 05:06 07/20/19 05:06 07/19/19 07/19/19 07/19/19 14:15 14:40 14:40 WBC 10.0 RBC 4.19 Hgb 11.9 L Hct 35.7 L MCV 85 MCH 28.3 MCHC 33.3 RDW 17.3 H Plt Count 323 Seg Neutrophils % 75.8 Sodium 137.5 Potassium 3.8 Chloride 102 Carbon Dioxide 28 Anion Gap 8 BUN 18 Creatinine 0.60 Est GFR ( Amer) > 60 Glucose 116 H Calcium 8.4 Phosphorus Magnesium Total Bilirubin 0.5 AST 24 Alkaline Phosphatase 121 Total Protein 6.6 Albumin 3.4 L Urine Color YELLOW Urine Appearance CLEAR Urine pH 6.0 Ur Specific [place] 1.012 Urine Protein NEGATIVE Urine Glucose (UA) NEGATIVE Urine Ketones NEGATIVE Urine Blood SMALL H Urine RBC (Auto) 2 07/20/19 07/20/19 05:06 05:06 WBC 8.3 RBC 3.94 Hgb 11.1 L Hct 33.3 L MCV 85 MCH 28.1 MCHC 33.3 RDW 17.5 H Plt Count 267 Seg Neutrophils % Sodium 138.1 Potassium 4.1 Chloride 104 Carbon Dioxide 29 Anion Gap 5 BUN 15 Creatinine 0.67 Est GFR ( Amer) > 60 Glucose 100 Calcium 8.1 L Phosphorus 3.9 Magnesium 2.1 Total Bilirubin AST Alkaline Phosphatase Total Protein Albumin Urine Color Urine Appearance Urine pH Ur Specific [place] Urine Protein Urine Glucose (UA) Urine Ketones Urine Blood Urine RBC (Auto) Impressions: Humerus X-Ray 07/19/19 11:56 IMPRESSION: RADIOPAQUE DENSITY IN THE PROXIMAL SOFT TISSUES, PROBABLY FOCAL CALCIFICATION. CANNOT EXCLUDE RADIOPAQUE FOREIGN BODY. NO OTHER SIGNIFICANT FINDINGS. Pelvis CT 07/19/19 12:36 IMPRESSION: MINIMALLY DISPLACED FRACTURES OF THE LEFT SUPERIOR AND INFERIOR PUBIC RAMUS. Assessment and Plan - Diagnosis (1) Intractable pain Is this a current diagnosis for this admission?: Yes Plan: 07/19/2019-intractable pain secondary to a fall 10 days ago. Bilateral ribs fractures at this time. Physical and occupational therapy Dilaudid 1 mg IV every 3 hours as needed pain continue to supply all needs and concerns. 07/20/2019-. Patient is requiring pain medication. I have added home Barry in addition to PRN Dilaudid. Awaiting physical and occupational therapy. (2) Pubic ramus fracture Qualifiers: Encounter type: initial encounter Fracture type: closed Laterality: left Qualified Code(s): S32.592A - Other specified fracture of left pubis, initial encounter for closed fracture Is this a current diagnosis for this admission?: Yes Plan: 07/19/2019-physical outpatient therapy. Possible short-term rehab 07/20/2019-followed by orthopedic surgery will await further recommendations. (3) Hypertension Is this a current diagnosis for this admission?: Yes Plan: 07/19/2019-most likely pain related. Continue IV Dilaudid. Continue all home medications once reconciliation is complete 07/20/2019-improved continue to follow (4) Nausea & vomiting Is this a current diagnosis for this admission?: Yes Plan: 07/19/2019 as needed Aldo 07/20/2019-continue PRN antiemetics. - Time Time Spent with patient: 15-24 minutes - Inpatient Certification Based on my medical assessment, after consideration of the patient's comorbidities, presenting symptoms, or acuity I expect that the services needed warrant INPATIENT care.: Yes I certify that my determination is in accordance with my understanding of Medicare's requirements for reasonable and necessary INPATIENT services [42 CFR 412.3e].: Yes Medical Necessity: Need for Pain Control, Other - Rehab
[2019-07-20] MEDS: ATORVASTATIN CALCIUM 20 MG TABLET PO SCH (10:35)
[2019-07-20] MEDS: DOCUSATE SODIUM 100 MG CAPSULE PO SCH (10:35)
[2019-07-20] MEDS: CYCLOSPORINE 0.05% OPH EMULSIO 0.4 ML DROPERETTE OP SCH ×2 (10:56→17:02)
[2019-07-20] MEDS: HYDROCODONE/ACETAMINOPHEN 5-325 MG TABLET PO PRN ×2 (13:24→22:01)
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
--- NOTE | 2019-07-20 16:59 | RADIOLOGY REPORT (SQ) ---
EXAM DESCRIPTION: KNEE RIGHT 3 VIEWS COMPLETED DATE/TIME: 07/20/2019 4:49 pm REASON FOR STUDY: Right knee pain COMPARISON: None. NUMBER OF VIEWS: Three views. TECHNIQUE: AP, lateral, and sunrise patella radiographic images acquired of the right knee. LIMITATIONS: None. FINDINGS: MINERALIZATION: Osteopenia. BONES: No acute fracture or dislocation. No worrisome bone lesions. JOINT: Mild tricompartmental osteoarthritic degenerative changes. Lateral compartment chondrocalcino sis. SOFT TISSUES: No soft tissue swelling. No radio-opaque foreign body. OTHER: No other significant finding. IMPRESSION: No obvious acute osseous abnormality of the right knee, in the setting of, osteopenia. Mild tricompartmental osteoarthritis. Nonspecific lateral compartment chondrocalcinosis, in which, c alcium pyrophosphate dihydrate deposition disease (CPPD) is considered. TECHNICAL DOCUMENTATION: JOB ID: [id number] [employer]- All Rights Reserved Reading location - IP/workstation name: [email or web address]
[2019-07-21] MEDS: HYDROCODONE/ACETAMINOPHEN 5-325 MG TABLET PO PRN ×4 (04:50→22:55)
[2019-07-21] MEDS: HEPARIN SOD (PORCINE) 5,000 UNIT/ML 1 ML VIAL SUBCUT SCH ×3 (05:02→22:28)
[2019-07-21 05:05] LABS: HEMATOCRIT 36.1 % (36.0-47.0); HEMOGLOBIN 11.8 g/dL (12.0-15.5); MEAN CORPUSCULAR HGB CONC 32.7 g/dL (32.0-36.0); MEAN CORPUSCULAR VOLUME 86 fl (80-97); PLATELET COUNT 313 10^3/uL (150-450); RED BLOOD COUNT 4.21 10^6/uL (3.72-5.28); RED CELL DISTRIBUTION WIDTH 17.3 % (11.5-14.0); WHITE BLOOD COUNT 9.4 10^3/uL (4.0-10.5)
[2019-07-21 05:26] LABS: ANION GAP 7 (5-19); BLOOD UREA NITROGEN 12 mg/dL (7-20); CALCIUM 8.4 mg/dL (8.4-10.2); CARBON DIOXIDE 31 mmol/L (22-30); CHLORIDE 100 mmol/L (98-107); GLUCOSE 104 mg/dL (75-110); POTASSIUM 4.5 mmol/L (3.6-5.0)
--- NOTE | 2019-07-21 08:40 | PDOC PROGRESS REPORT ---
Subjective Progress Note for:: 07/21/19 Subjective:: 07/20/2019-continue pain pelvis area 07/21/2019-improved. Continues have pain in pelvic area. Reason For Visit: INTRACTABLE PAIN Physical Exam Vital Signs: Temp Pulse Resp BP Pulse Ox 98.5 F 96 16 145/67 H 94 07/21/19 08:00 07/21/19 08:00 07/21/19 08:00 07/21/19 08:00 07/21/19 08:00 Intake & Output 07/20/19 07/21/19 07/22/19 06:59 06:59 06:59 Intake Total 999 1214 Output Total 300 3475 Balance 699 -2261 Weight 68.2 kg 69 kg General appearance: PRESENT: no acute distress, well-developed, well-nourished Neck exam: ABSENT: carotid bruit, JVD, lymphadenopathy, thyromegaly Respiratory exam: PRESENT: clear to auscultation drea. ABSENT: rales, rhonchi, wheezes Cardiovascular exam: PRESENT: RRR. ABSENT: diastolic murmur, rubs, systolic murmur Pulses: PRESENT: +1 pedal pulses bilateral Vascular exam: PRESENT: normal capillary refill GI/Abdominal exam: PRESENT: normal bowel sounds, soft. ABSENT: distended, guarding, mass, organolmegaly, rebound, tenderness Extremities exam: PRESENT: full ROM. ABSENT: calf tenderness, clubbing, pedal edema Neurological exam: PRESENT: alert, awake, oriented to person, oriented to place, oriented to time, oriented to situation, CN II-XII grossly intact. ABSENT: motor sensory deficit Psychiatric exam: PRESENT: appropriate affect, normal mood. ABSENT: homicidal ideation, suicidal ideation Skin exam: PRESENT: dry, intact, warm, other - Left black eye. ABSENT: cyanosis, rash Results Laboratory Results: 07/21/19 04:04 07/21/19 04:04 07/21/19 07/21/19 04:04 04:04 WBC 9.4 RBC 4.21 Hgb 11.8 L Hct 36.1 MCV 86 MCH 28.0 MCHC 32.7 RDW 17.3 H Plt Count 313 Sodium 137.5 Potassium 4.5 Chloride 100 Carbon Dioxide 31 H Anion Gap 7 BUN 12 Creatinine 0.76 Est GFR ( Amer) > 60 Glucose 104 Calcium 8.4 Impressions: Humerus X-Ray 07/19/19 11:56 IMPRESSION: RADIOPAQUE DENSITY IN THE PROXIMAL SOFT TISSUES, PROBABLY FOCAL CALCIFICATION. CANNOT EXCLUDE RADIOPAQUE FOREIGN BODY. NO OTHER SIGNIFICANT FINDINGS. Pelvis CT 07/19/19 12:36 IMPRESSION: MINIMALLY DISPLACED FRACTURES OF THE LEFT SUPERIOR AND INFERIOR PUBIC RAMUS. Knee X-Ray 07/20/19 00:00 IMPRESSION: No obvious acute osseous abnormality of the right knee, in the setting of, osteopenia. Mild tricompartmental osteoarthritis. Nonspecific lateral compartment chondrocalcinosis, in which, calcium pyrophosphate dihydrate deposition disease (CPPD) is considered. Assessment and Plan - Diagnosis (1) Intractable pain Is this a current diagnosis for this admission?: Yes Plan: 07/19/2019-intractable pain secondary to a fall 10 days ago. Bilateral ribs fractures at this time. Physical and occupational therapy Dilaudid 1 mg IV every 3 hours as needed pain continue to supply all needs and concerns. 07/20/2019-. Patient is requiring pain medication. I have added home Palm in addition to PRN Dilaudid. Awaiting physical and occupational therapy. 07/21/2019-improved. Patient was saw by orthopedic surgery who has stated patient is cleared for rehab when available. Continue physical and occupational therapy (2) Pubic ramus fracture Qualifiers: Encounter type: initial encounter Fracture type: closed Laterality: left Qualified Code(s): S32.592A - Other specified fracture of left pubis, initial encounter for closed fracture Is this a current diagnosis for this admission?: Yes Plan: 07/19/2019-physical outpatient therapy. Possible short-term rehab 07/20/2019-followed by orthopedic surgery will await further recommendations. 07/21/2019-stable continue to follow with orthopedic surgery (3) Hypertension Is this a current diagnosis for this admission?: Yes Plan: 07/19/2019-most likely pain related. Continue IV Dilaudid. Continue all home medications once reconciliation is complete 07/20/2019-improved continue to follow 07/21/2019-mildly elevated. Added Norvasc 5 mill grams p.o. daily (4) Nausea & vomiting Is this a current diagnosis for this admission?: Yes Plan: 07/19/2019 as needed Zofran 07/20/2019-continue PRN antiemetics. 07/21/2019-stable continue PRN antiemetics as needed - Time Time Spent with patient: 15-24 minutes - Inpatient Certification Based on my medical assessment, after consideration of the patient's comorbidities, presenting symptoms, or acuity I expect that the services needed warrant INPATIENT care.: Yes I certify that my determination is in accordance with my understanding of Medicare's requirements for reasonable and necessary INPATIENT services [42 CFR 412.3e].: Yes Medical Necessity: Other - Rehab
[2019-07-21] MEDS ORDERED: AMLODIPINE BESYLATE 5 MG TABLET PO SCH (10:00)
[2019-07-21] MEDS: ATORVASTATIN CALCIUM 20 MG TABLET PO SCH (10:26)
[2019-07-21] MEDS: DOCUSATE SODIUM 100 MG CAPSULE PO SCH (10:27)
[2019-07-21] MEDS ORDERED: PROPRANOLOL HCL 20 MG TABLET PO SCH (11:00)
[2019-07-21] MEDS: PROPRANOLOL 60 MG PO SCH (11:40)
[2019-07-21] MEDS: CYCLOSPORINE 0.05% OPH EMULSIO 0.4 ML DROPERETTE OP SCH ×2 (14:17→17:00)
[2019-07-21] MEDS ORDERED: ONDANSETRON HCL INJ/PF 4 MG/2 ML SDV IV PRN (15:30)
[2019-07-22] MEDS: HYDROCODONE/ACETAMINOPHEN 5-325 MG TABLET PO PRN ×3 (05:08→22:11)
[2019-07-22] MEDS: HEPARIN SOD (PORCINE) 5,000 UNIT/ML 1 ML VIAL SUBCUT SCH ×3 (05:11→22:11)
[2019-07-22 06:06] LABS: HEMATOCRIT 35.2 % (36.0-47.0); HEMOGLOBIN 11.7 g/dL (12.0-15.5); MEAN CORPUSCULAR HEMOGLOBIN 28.1 pg (27.0-33.4); MEAN CORPUSCULAR HGB CONC 33.2 g/dL (32.0-36.0); MEAN CORPUSCULAR VOLUME 85 fl (80-97); PLATELET COUNT 333 10^3/uL (150-450); RED BLOOD COUNT 4.15 10^6/uL (3.72-5.28); RED CELL DISTRIBUTION WIDTH 17.5 % (11.5-14.0); WHITE BLOOD COUNT 9.8 10^3/uL (4.0-10.5)
[2019-07-22 06:29] LABS: ANION GAP 6 (5-19); BLOOD UREA NITROGEN 14 mg/dL (7-20); CALCIUM 8.2 mg/dL (8.4-10.2); CARBON DIOXIDE 29 mmol/L (22-30); CHLORIDE 102 mmol/L (98-107); GLUCOSE 100 mg/dL (75-110); POTASSIUM 4.1 mmol/L (3.6-5.0)
[2019-07-22] MEDS: DOCUSATE SODIUM 100 MG CAPSULE PO SCH (09:18)
[2019-07-22] MEDS: ATORVASTATIN CALCIUM 20 MG TABLET PO SCH (09:18)
[2019-07-22] MEDS: PROPRANOLOL 60 MG PO SCH (09:18)
[2019-07-22] MEDS: CYCLOSPORINE 0.05% OPH EMULSIO 0.4 ML DROPERETTE OP SCH ×2 (09:19→17:00)
[2019-07-22] MEDS ORDERED: LIDOCAINE 5% (700 MG) TRANSDERMAL ADH..PATCH TP PRN (09:38)
[2019-07-22] MEDS ORDERED: GABAPENTIN 100 MG CAPSULE PO PRN (09:39)
--- NOTE | 2019-07-22 18:10 | PDOC PROGRESS REPORT ---
Subjective Progress Note for:: 07/22/19 Subjective:: This is an 83-year-old female who presented with hip pain and was admitted for intractable pain secondary to a hip fracture. She was seen by orthopedics and was managed nonoperatively. This morning, RN reported that she was crying because of severe hip pain. Patient did report she feels very dizzy with Dilaudid. Upon encounter, she appears more comfortable. Will add lidocaine patch and Neurontin. Will discontinue Dilaudid. Anticipate clearance for SNF/rehab placement in the next 24 hours hopefully you after better pain control. Reason For Visit: INTRACTABLE PAIN Physical Exam Vital Signs: Temp Pulse Resp BP Pulse Ox 98.3 F 73 19 143/70 H 100 07/22/19 11:34 07/22/19 11:34 07/22/19 11:34 07/22/19 11:34 07/22/19 11:34 Intake & Output 07/21/19 07/22/19 07/23/19 06:59 06:59 06:59 Intake Total 1214 916 360 Output Total 3475 4200 350 Balance -2261 -3284 10 Weight 152 lb 1.903 oz 152 lb 12.485 oz General appearance: PRESENT: no acute distress, well-developed, well-nourished Head exam: PRESENT: atraumatic, normocephalic Eye exam: PRESENT: conjunctiva pink, EOMI, PERRLA. ABSENT: scleral icterus Ear exam: PRESENT: normal external ear exam Mouth exam: PRESENT: moist, tongue midline Neck exam: ABSENT: carotid bruit, JVD, lymphadenopathy, thyromegaly Respiratory exam: PRESENT: clear to auscultation drea. ABSENT: rales, rhonchi, wheezes Cardiovascular exam: PRESENT: RRR. ABSENT: diastolic murmur, rubs, systolic murmur Pulses: PRESENT: normal dorsalis pedis pul GI/Abdominal exam: PRESENT: normal bowel sounds, soft. ABSENT: distended, guarding, mass, organolmegaly, rebound, tenderness Rectal exam: PRESENT: deferred Extremities exam: ABSENT: pedal edema Neurological exam: PRESENT: alert, awake, oriented to person, oriented to place, oriented to time, oriented to situation, CN II-XII grossly intact. ABSENT: motor sensory deficit Results Laboratory Results: 07/22/19 05:03 07/22/19 05:03 07/22/19 07/22/19 05:03 05:03 WBC 9.8 RBC 4.15 Hgb 11.7 L Hct 35.2 L MCV 85 MCH 28.1 MCHC 33.2 RDW 17.5 H Plt Count 333 Sodium 136.8 L Potassium 4.1 Chloride 102 Carbon Dioxide 29 Anion Gap 6 BUN 14 Creatinine 0.67 Est GFR ( Amer) > 60 Glucose 100 Calcium 8.2 L Impressions: Humerus X-Ray 07/19/19 11:56 IMPRESSION: RADIOPAQUE DENSITY IN THE PROXIMAL SOFT TISSUES, PROBABLY FOCAL CALCIFICATION. CANNOT EXCLUDE RADIOPAQUE FOREIGN BODY. NO OTHER SIGNIFICANT FINDINGS. Pelvis CT 07/19/19 12:36 IMPRESSION: MINIMALLY DISPLACED FRACTURES OF THE LEFT SUPERIOR AND INFERIOR PUBIC RAMUS. Knee X-Ray 07/20/19 00:00 IMPRESSION: No obvious acute osseous abnormality of the right knee, in the setting of, osteopenia. Mild tricompartmental osteoarthritis. Nonspecific lateral compartment chondrocalcinosis, in which, calcium pyrophosphate dihydrate deposition disease (CPPD) is considered. Assessment and Plan - Diagnosis (1) Intractable pain Is this a current diagnosis for this admission?: Yes Plan: Secondary to ramus fracture from a fall. Patient complaining of dizziness with Dilaudid. Discontinue Dilaudid. We will add a lidocaine patch and Neurontin. (2) Pubic ramus fracture Qualifiers: Encounter type: initial encounter Fracture type: closed Laterality: left Qualified Code(s): S32.592A - Other specified fracture of left pubis, initial encounter for closed fracture Is this a current diagnosis for this admission?: Yes Plan: Evaluated by orthopedics. Continue conservative management and physical therapy. (3) Hypertension Is this a current diagnosis for this admission?: Yes Plan: Controlled. - Time Time Spent with patient: 25-34 minutes
[2019-07-23] MEDS: HEPARIN SOD (PORCINE) 5,000 UNIT/ML 1 ML VIAL SUBCUT SCH (06:21)
[2019-07-23] MEDS: HYDROCODONE/ACETAMINOPHEN 5-325 MG TABLET PO PRN (06:23)
--- NOTE | 2019-07-23 08:42 | RADIOLOGY REPORT (SQ) ---
EXAM DESCRIPTION: CHEST SINGLE VIEW COMPLETED DATE/TIME: 07/22/2019 9:58 pm REASON FOR STUDY: rule out rib fracture COMPARISON: AP view of the chest from 02/04/2010 EXAM PARAMETERS: NUMBER OF VIEWS: One view. TECHNIQUE: Single frontal radiographic view of the chest acquired. RADIATION DOSE: NA LIMITATIONS: None. FINDINGS: LUNGS AND PLEURA: The costophrenic sulci are blunted and there is biapical scarring. The curvilinear bibasilar opacities are nonspecific and could represent strands of atelectasis. There is no pneumothorax. MEDIASTINUM AND HILAR STRUCTURES: No mediastinal or hilar contour abnormality. HEART AND VASCULAR STRUCTURES: The cardiac silhouette and pulmonary vasculature within normal limits given the low inspiratory lung volumes. BONES: There are acute fractures of the bilateral posterolateral 6th and 7th ribs. HARDWARE: None in the chest. OTHER: No other finding. IMPRESSION: 1. Acute fractures of the bilateral posterolateral 6th and 7th ribs. There is no associ ated pneumothorax. 2. Blunting of the costophrenic sulci and bibasilar curvilinear opacities. These findings could rep resent pleural fluid and atelectasis. TECHNICAL DOCUMENTATION: JOB ID: [id number] [employer]- All Rights Reserved Reading location - IP/workstation name: [email or web address]
[2019-07-23] MEDS: ATORVASTATIN CALCIUM 20 MG TABLET PO SCH (09:20)
[2019-07-23] MEDS: DOCUSATE SODIUM 100 MG CAPSULE PO SCH (09:20)
[2019-07-23] MEDS: ACETAMINOPHEN 325 MG TABLET PO PRN (09:21)
[2019-07-23] MEDS: PROPRANOLOL 60 MG PO SCH (09:23)
[2019-07-23 09:25] LABS: AMORPHOUS SEDIMENT,URINE TRACE /HPF; APPEARANCE,URINE CLOUDY; BILIRUBIN,URINE NEGATIVE (NEGATIVE); CALCIUM OXALATE CRYSTALS,URINE RARE /HPF; COLOR,URINE YELLOW; GLUCOSE, URINE NEGATIVE (NEGATIVE); KETONES,URINE NEGATIVE (NEGATIVE); LEUKOCYTE ESTERASE,URINE LARGE (NEGATIVE); NITRITE,URINE NEGATIVE (NEGATIVE); PROTEIN,URINE 30 mg/dL (NEGATIVE); URINE SPECIFIC GRAVITY 1.012; UROBILINOGEN,URINE NEGATIVE mg/dL (<2.0)
[2019-07-23] MEDS: CYCLOSPORINE 0.05% OPH EMULSIO 0.4 ML DROPERETTE OP SCH (09:25)
--- NOTE | 2019-07-23 10:51 | PDOC PROGRESS REPORT ---
Subjective Progress Note for:: 07/23/19 Subjective:: The patient denies ambulating with therapy. She understands that there will be pain and yet she is eager to comply. However discussing with the nurse, she may have refused therapy yesterday. I have encouraged her to get out of bed and to walk Reason For Visit: INTRACTABLE PAIN Physical Exam Vital Signs: Temp Pulse Resp BP Pulse Ox 97.2 F 74 20 127/50 H 97 07/23/19 08:00 07/23/19 08:00 07/23/19 08:00 07/23/19 08:00 07/23/19 08:00 Intake & Output 07/22/19 07/23/19 07/24/19 06:59 06:59 06:59 Intake Total 916 478 Output Total 4200 1150 Balance -3284 -672 Weight 69.3 kg 67.3 kg Physical Exam: Physical Exam: General appearance: PRESENT: no acute distress, cooperative, well-nourished Head exam: PRESENT: atraumatic, normocephalic Eye exam: PRESENT: EOMI Ear exam: PRESENT: normal external ear exam Mouth exam: PRESENT: neck supple Neck exam: ABSENT: tracheal deviation Respiratory exam: PRESENT: symmetrical, unlabored. ABSENT: accessory muscle use, wheezes Pulses: PRESENT: normal radial pulses, normal dorsalis pedis pulse Vascular exam: PRESENT: normal capillary refill GI/Abdominal exam: ABSENT: distended, firm Extremities exam: PRESENT: full ROM of bilateral shoulders, elbows wrists, knees, hips and ankles without pain Musculoskeletal exam: PRESENT: full ROM, normal inspection of all 4 extremities aside from that noted below. Neurological exam: PRESENT: alert, awake, oriented to person, oriented to place, oriented to time Psychiatric exam: PRESENT: appropriate affect. ABSENT: agitated Focused psych exam: ABSENT: catatonic Skin exam: PRESENT: intact. ABSENT: dry All as above aside from that noted in the HPI and the following: Right lower extremity -Pulses 2+ distally -Compartments soft -Sensation grossly intact to L3-4-5 S1 -Motor grossly intact to EHL TA gastroc and quad - Able to perform quad extension and elevate heel off of bed. -Pain to palpation along the biceps femoris in the posterior lateral aspect proximal to the knee -No pain to axial compression or logroll. - Pain with active ROM on the right in the groin. Left lower extremity -Pulses 2+ distally -Compartments soft -Sensation grossly intact to L3-4-5 S1 -Motor grossly intact to EHL TA gastroc and quad - No pain to axial compression or logroll, some pain to active hip flexion -Pain to pelvic compression on the left, primarily. In the groin Results Laboratory Results: 07/22/19 05:03 07/22/19 05:03 07/23/19 08:47 Urine Color YELLOW Urine Appearance CLOUDY Urine pH 8.0 Ur Specific [place] 1.012 Urine Protein 30 H Urine Glucose (UA) NEGATIVE Urine Ketones NEGATIVE Urine Blood SMALL H Urine Nitrite NEGATIVE Ur Leukocyte Esterase LARGE H Urine WBC (Auto) 53 Urine RBC (Auto) 3 Impressions: Humerus X-Ray 07/19/19 11:56 IMPRESSION: RADIOPAQUE DENSITY IN THE PROXIMAL SOFT TISSUES, PROBABLY FOCAL CALCIFICATION. CANNOT EXCLUDE RADIOPAQUE FOREIGN BODY. NO OTHER SIGNIFICANT FINDINGS. Pelvis CT 07/19/19 12:36 IMPRESSION: MINIMALLY DISPLACED FRACTURES OF THE LEFT SUPERIOR AND INFERIOR PUBIC RAMUS. Knee X-Ray 07/20/19 00:00 IMPRESSION: No obvious acute osseous abnormality of the right knee, in the setting of, osteopenia. Mild tricompartmental osteoarthritis. Nonspecific lateral compartment chondrocalcinosis, in which, calcium pyrophosphate dihydrate deposition disease (CPPD) is considered. Chest X-Ray 07/22/19 00:00 IMPRESSION: 1. Acute fractures of the bilateral posterolateral 6th and 7th ribs. There is no associated pneumothorax. 2. Blunting of the costophrenic sulci and bibasilar curvilinear opacities. These findings could represent pleural fluid and atelectasis. Assessment & Plan - Diagnosis (1) Right knee pain Is this a current diagnosis for this admission?: Yes Plan: X-rays negative for acute injury. She is weightbearing as tolerated on the side. (2) Pubic ramus fracture Qualifiers: Encounter type: initial encounter Fracture type: closed Laterality: left Qualified Code(s): S32.592A - Other specified fracture of left pubis, initial encounter for closed fracture Is this a current diagnosis for this admission?: Yes Plan: The patient is doing well with pain in bed however she needs to be encouraged to get out of bed to chair most of the day as well as to ambulate. I have written physical therapy and Occupational Therapy consults in order for her to be progressed weightbearing as tolerated. -She can follow-up in my clinic in 2 to 3 weeks for further evaluation and x- ray. Please call [phone] for an appointment - Time Time Spent with patient: Less than 15 minutes
--- NOTE | 2019-07-23 13:41 | PDOC TRANSFER SUMMARY ---
Impression - Admit/DC Date/PCP Admission Date/Primary Care Provider: 07/19/19 13:56 HAILEE FREEMAN MD Discharge Date: 07/23/19 - Discharge Diagnosis (1) Intractable pain Is this a current diagnosis for this admission?: Yes (2) Pubic ramus fracture Is this a current diagnosis for this admission?: Yes (3) Hypertension Is this a current diagnosis for this admission?: Yes - Additional Information Resuscitation Status: Full Code Referrals: HAILEE FREEMAN MD [Primary Care Provider] - Follow up as needed Prescriptions: Lidocaine [Lidoderm 5% (700 mg) Transdermal Patch] 1 patch TP DAILYP PRN #7 adh..patch PRN Reason: Gabapentin [Neurontin 100 mg Capsule] 200 mg PO Q8HP PRN #30 capsule PRN Reason: Home Medications: Acetaminophen [Tylenol] 650 mg PO Q4HP PRN 07/19/19 Atorvastatin Calcium [Lipitor 20 mg Tablet] 20 mg PO DAILY 07/19/19 Calcium Carbonate/Vitamin D3 [Calcium 500 mg-Vit D3 600 Unit] 1 each PO DAILY 07/19/19 Cyclosporine 0.05% Oph Emulsio [Restasis 0.05% Oph Emulsion Pf 0.4 ml] 1 drop OP BID 07/19/19 Hydrocodone/Acetaminophen [[place] 5-325 mg Tablet] 1 tab PO Q6HP PRN 07/19/19 Loratadine [Claritin] 10 mg PO DAILY 07/19/19 Lorazepam [Ativan 1 mg Tablet] 2 mg PO DAILYP PRN 07/19/19 Multivitamin/Iron/Folic Acid [Centrum Adults Tablet] 1 each PO DAILY 07/19/19 Ondansetron [Zofran Odt 4 mg Tablet] 1 - 2 tab PO Q4HP PRN 07/19/19 Propylene Glycol/Peg 400 [Systane 0.3-0.4% Eye Drops] 15 ml OP DAILYP PRN 07/19/19 [place] Oil/[place]-3 Fatty Acids [[place] Oil-1,000 Capsule] 1 each PO DAILY 07/19/19 Acetaminophen [Tylenol 325 mg Tablet] 650 mg PO Q4HP PRN tablet 07/23/19 Gabapentin [Neurontin 100 mg Capsule] 200 mg PO Q8HP PRN #30 capsule 07/23/19 Lidocaine [Lidoderm 5% (700 mg) Transdermal Patch] 1 patch TP DAILYP PRN #7 adh..patch 07/23/19 History of Present Illiness History of Present Illness: Admitting hospitalist's H&P: RASTA CONTRERAS is a 83 year old female is a very pleasant 83-year-old female with history of peripheral edema who presented to ER complaining of continued bilateral pelvis pain status post a fall 10 days ago. Patient was evaluated in the ER at that time was found to be inconclusive for fractures at the time but was able to ambulate and weight-bear so she was sent home. Patient states she been able to go to restroom as well as other daily activities because of pain. She denies any further falls no other concerns or complaints at this time. Patient does live alone but does have friends who check on her periodically. She had no treatment prior to arrival all activities aggravating factor. Hospital Course Hospital Course: This is an 83-year-old female who presented with hip pain and was admitted for intractable pain secondary to a hip fracture. She was seen by orthopedics and was managed nonoperatively. She did report of dizziness from the Dilaudid hence her pain regimen was adjusted. Her pain was well controlled with adding a lidocaine patch and Neurontin. She will be going to [facility] for rehab. She will need a close ff-up appointment with orthopedics in 2 weeks. Physical Exam Vital Signs: Temp Pulse Resp BP Pulse Ox 97.2 F 74 20 127/50 H 97 07/23/19 08:00 07/23/19 08:00 07/23/19 08:00 07/23/19 08:00 07/23/19 08:00 Intake & Output 07/22/19 07/23/19 07/24/19 06:59 06:59 06:59 Intake Total 916 478 Output Total 4200 1150 Balance -3284 -672 Weight 152 lb 12.485 oz 148 lb 5.938 oz General appearance: PRESENT: no acute distress, well-developed, well-nourished Head exam: PRESENT: atraumatic, normocephalic Eye exam: PRESENT: conjunctiva pink, EOMI, PERRLA. ABSENT: scleral icterus Ear exam: PRESENT: normal external ear exam Mouth exam: PRESENT: moist, tongue midline Neck exam: ABSENT: carotid bruit, JVD, lymphadenopathy, thyromegaly Respiratory exam: PRESENT: clear to auscultation drea. ABSENT: rales, rhonchi, wheezes Cardiovascular exam: PRESENT: RRR. ABSENT: diastolic murmur, rubs, systolic murmur Pulses: PRESENT: normal dorsalis pedis pul GI/Abdominal exam: PRESENT: normal bowel sounds, soft. ABSENT: distended, guarding, mass, organolmegaly, rebound, tenderness Rectal exam: PRESENT: deferred Neurological exam: PRESENT: alert, awake, oriented to person, oriented to place, oriented to time, oriented to situation, CN II-XII grossly intact. ABSENT: motor sensory deficit Results Laboratory Results: WBC 9.8 10^3/uL (4.0-10.5) 07/22/19 05:03 RBC 4.15 10^6/uL (3.72-5.28) 07/22/19 05:03 Hgb 11.7 g/dL (12.0-15.5) L 07/22/19 05:03 Hct 35.2 % (36.0-47.0) L 07/22/19 05:03 MCV 85 fl (80-97) 07/22/19 05:03 MCH 28.1 pg (27.0-33.4) 07/22/19 05:03 MCHC 33.2 g/dL (32.0-36.0) 07/22/19 05:03 RDW 17.5 % (11.5-14.0) H 07/22/19 05:03 Plt Count 333 10^3/uL (150-450) 07/22/19 05:03 Lymph % (Auto) 11.1 % (13-45) L 07/19/19 14:40 [place] % (Auto) 11.6 % (3-13) 07/19/19 14:40 Eos % (Auto) 0.9 % (0-6) 07/19/19 14:40 Baso % (Auto) 0.6 % (0-2) 07/19/19 14:40 Absolute Neuts (auto) 7.5 10^3/uL (1.7-8.2) 07/19/19 14:40 Absolute Lymphs (auto) 1.1 10^3/uL (0.5-4.7) 07/19/19 14:40 Absolute Monos (auto) 1.2 10^3/uL (0.1-1.4) 07/19/19 14:40 Absolute Eos (auto) 0.1 10^3/uL (0.0-0.6) 07/19/19 14:40 Absolute Basos (auto) 0.1 10^3/uL (0.0-0.2) 07/19/19 14:40 Seg Neutrophils % 75.8 % (42-78) 07/19/19 14:40 Sodium 136.8 mmol/L (137-145) L 07/22/19 05:03 Potassium 4.1 mmol/L (3.6-5.0) 07/22/19 05:03 Chloride 102 mmol/L (98-107) 07/22/19 05:03 Carbon Dioxide 29 mmol/L (22-30) 07/22/19 05:03 Anion Gap 6 (5-19) 07/22/19 05:03 BUN 14 mg/dL (7-20) 07/22/19 05:03 Creatinine 0.67 mg/dL (0.52-1.25) 07/22/19 05:03 Est GFR ( Amer) > 60 (>60) 07/22/19 05:03 Est GFR (MDRD) Non-Af > 60 (>60) 07/22/19 05:03 Glucose 100 mg/dL (75-110) 07/22/19 05:03 Calcium 8.2 mg/dL (8.4-10.2) L 07/22/19 05:03 Phosphorus 3.9 mg/dL (2.5-4.5) 07/20/19 05:06 Magnesium 2.1 mg/dL (1.6-2.3) 07/20/19 05:06 Total Bilirubin 0.5 mg/dL (0.2-1.3) 07/19/19 14:40 Direct Bilirubin 0.2 mg/dL (0.0-0.4) 07/19/19 14:40 Neonat Total Bilirubin Not Reportable 07/19/19 14:40 Neonat Direct Bilirubin Not Reportable 07/19/19 14:40 Neonat Indirect Bili Not Reportable 07/19/19 14:40 AST 24 U/L (14-36) 07/19/19 14:40 ALT 16 U/L (<35) 07/19/19 14:40 Alkaline Phosphatase 121 U/L (38-126) 07/19/19 14:40 Total Protein 6.6 g/dL (6.3-8.2) 07/19/19 14:40 Albumin 3.4 g/dL (3.5-5.0) L 07/19/19 14:40 Urine Color YELLOW 07/23/19 08:47 Urine Appearance CLOUDY 07/23/19 08:47 Urine pH 8.0 (5.0-9.0) 07/23/19 08:47 Ur Specific [place] 1.012 07/23/19 08:47 Urine Protein 30 mg/dL (NEGATIVE) H 07/23/19 08:47 Urine Glucose (UA) NEGATIVE mg/dL (NEGATIVE) 07/23/19 08:47 Urine Ketones NEGATIVE mg/dL (NEGATIVE) 07/23/19 08:47 Urine Blood SMALL (NEGATIVE) H 07/23/19 08:47 Urine Nitrite NEGATIVE (NEGATIVE) 07/23/19 08:47 Urine Nitrite (Reflex) NEGATIVE (NEGATIVE) 07/19/19 14:15 Urine Bilirubin NEGATIVE (NEGATIVE) 07/23/19 08:47 Urine Urobilinogen NEGATIVE mg/dL (<2.0) 07/23/19 08:47 Ur Leukocyte Esterase LARGE (NEGATIVE) H 07/23/19 08:47 Leukocyte Esterase Rfl NEGATIVE (NEGATIVE) 07/19/19 14:15 Urine WBC (Auto) 53 /HPF 07/23/19 08:47 Urine RBC (Auto) 3 /HPF 07/23/19 08:47 Urine Bacteria (Auto) TRACE /HPF 07/23/19 08:47 Urine WBC (Reflex) 1 /HPF 07/19/19 14:15 Urine WBC Clumps OCC /HPF 07/23/19 08:47 Squamous Epi Cells Auto <1 /HPF 07/23/19 08:47 Calcium Oxalate Cr Auto RARE /HPF 07/23/19 08:47 Amorphous Sediment Auto TRACE /HPF 07/23/19 08:47 Urine Mucus (Auto) RARE /LPF 07/23/19 08:47 Urine Ascorbic Acid NEGATIVE (NEGATIVE) 07/23/19 08:47 Impressions: Humerus X-Ray 07/19/19 11:56 IMPRESSION: RADIOPAQUE DENSITY IN THE PROXIMAL SOFT TISSUES, PROBABLY FOCAL CALCIFICATION. CANNOT EXCLUDE RADIOPAQUE FOREIGN BODY. NO OTHER SIGNIFICANT FINDINGS. Pelvis CT 07/19/19 12:36 IMPRESSION: MINIMALLY DISPLACED FRACTURES OF THE LEFT SUPERIOR AND INFERIOR PUBIC RAMUS. Knee X-Ray 07/20/19 00:00 IMPRESSION: No obvious acute osseous abnormality of the right knee, in the setting of, osteopenia. Mild tricompartmental osteoarthritis. Nonspecific lateral compartment chondrocalcinosis, in which, calcium pyrophosphate dihydrate deposition disease (CPPD) is considered. Chest X-Ray 07/22/19 00:00 IMPRESSION: 1. Acute fractures of the bilateral posterolateral 6th and 7th ribs. There is no associated pneumothorax. 2. Blunting of the costophrenic sulci and bibasilar curvilinear opacities. These findings could represent pleural fluid and atelectasis. Stroke Is this a Stroke Patient?: No Acute Heart Failure - Is this a Heart Failure Patient?: No
[2019-07-23 15:41] VITALS: BP 127/50
== END 2019-07-23 15:15 | DRG 536 ==
LOC: ER 11:14 → EH 13:56 → 4N 17:36
PROVIDERS: ADMIT Internal Medicine; ATTEND Internal Medicine
DX: S32.512A Fracture of superior rim of left pubis, initial encounter for closed fracture (principal); S22.43XA Multiple fractures of ribs, bilateral, initial encounter for closed fracture; S00.12XA Contusion of left eyelid and periocular area, initial encounter; I10 Essential (primary) hypertension; M25.561 Pain in right knee; W19.XXXA Unspecified fall, initial encounter; Y93.89 Activity, other specified; Y92.098 Other place in other non-institutional residence as the place of occurrence of the external cause; Z60.2 Problems related to living alone
CPT/HCPCS: 36415; 51702; 71045; 72192; 80048; 80053; 81001; 83735; 84100; 85025; 85027; 99285; J1170; J1644; J3490; J7030